=== PATIENT | female | born 1985 | race Caucasian/White ===

== ENCOUNTER 2018-12-26 19:17 | Emergency (ER) | payer OTHER ==
--- NOTE | 2018-12-26 20:39 | ER Document Report ---
ED Eye Complaint - General Mode of Arrival: Ambulatory Information source: Patient TRAVEL OUTSIDE OF THE [place] IN LAST 30 DAYS: No - HPI Onset: Other - 5 weeks Eye location: Right Injury: No Occurred at: Home Quality of pain: Sharp, Throbbing Severity: Severe Pain Level: 5 Associated symptoms: Pain, Redness, Eyelid swelling Other injuries: No injuries - General Chief Complaint: Eye Problem Stated Complaint: RIGHT EYE PAIN Time Seen by Provider: 12/26/18 20:17 Primary Care Provider: SANTO LUEVANO DO [Primary Care Provider] - Follow up as needed QUENTIN OMER DO [ACTIVE STAFF] - Follow up tomorrow (Call office at 8 AM and schedule an appointment for tomorrow I have spoken with the doctor you are to be seen tomorrow) Notes: 33-year-old female presented to ED for an infected Hordeolum to the right upper eyelid. The eye is very swollen. She states she has had this spot to the right upper eyelid for about 5 weeks. She states she started out with a stye and has been to her primary care doctor multiple times for this swelling to the eyelid. She states that they sent a ophthalmology consult but she cannot get into see the sample carrier until January which is 6 weeks from now. She now has an abscess to the upper eyelid. She states that the primary care doctor has not placed her on any antibiotics. She states the p pain has gotten severe due to the pressure. Patient is alert oriented respirations regular and unlabored speaking in full sentences walks with a even steady gait. (NITISH AGGARWAL) - Related Data Allergies/Adverse Reactions: Penicillins Allergy (Verified 12/26/18 19:18) Hives Past Medical History - General Information source: Patient - Social History Smoking Status: Current Every Day Smoker Cigarette use (# per day): Yes Smoking Education Provided: Yes - 4 minutes Frequency of alcohol use: None Drug Abuse: None Lives with: Family Family History: Reviewed & Not Pertinent Patient has suicidal ideation: No Patient has homicidal ideation: No - Past Medical History Cardiac Medical History: Reports: None Pulmonary Medical History: Reports: None EENT Medical History: Reports: None Neurological Medical History: Reports: Hx Migraine Endocrine Medical History: Reports: None Renal/ Medical History: Reports: None Malignancy Medical History: Reports: None GI Medical History: Reports: None Musculoskeletal Medical History: Reports None Skin Medical History: Reports None Psychiatric Medical History: Reports: Hx Anxiety, Hx Depression - anxiety Traumatic Medical History: Reports: None Infectious Medical History: Reports: None Past Surgical History: Reports: Hx Abdominal Surgery - exp lap, Hx Tonsillectomy Review of Systems - Review of Systems Constitutional: No symptoms reported EENT: Eye pain, Other - Started with a stye to the right upper eyelid now has an infected hordeolum Cardiovascular: No symptoms reported Respiratory: No symptoms reported Gastrointestinal: No symptoms reported Genitourinary: No symptoms reported Female Genitourinary: No symptoms reported Musculoskeletal: No symptoms reported Skin: No symptoms reported Hematologic/Lymphatic: No symptoms reported Neurological/Psychological: No symptoms reported -: Yes All other systems reviewed and negative Physical Exam - Vital signs Interpretation: Normal - General General appearance: Appears well, Alert - HEENT Head: Normocephalic, Atraumatic Eyes: Normal Pupils: PERRL Lids everted for exam: right: Stye - Infected hordeolum right upper eyelid Anterior chamber: Normal Ears: Normal External canal: Normal Tympanic membrane: Normal Sinus: Normal Nasal: Normal Mouth/Lips: Normal Mucous membranes: Normal Pharynx: Normal Neck: Normal - Respiratory Respiratory status: No respiratory distress Chest status: Nontender Breath sounds: Normal Chest palpation: Normal - Cardiovascular Rhythm: Regular Heart sounds: Normal auscultation Murmur: No - Abdominal Inspection: Normal Distension: No distension Bowel sounds: Normal Tenderness: Nontender Organomegaly: No organomegaly - Back Back: Normal, Nontender - Extremities General upper extremity: Normal inspection, Nontender, Normal color, Normal ROM, Normal temperature General lower extremity: Normal inspection, Nontender, Normal color, Normal ROM, Normal temperature, Normal weight bearing. No: Poly's sign - Neurological Neuro grossly intact: Yes Cognition: Normal Orientation: AAOx4 Adam Coma Scale Eye Opening: Spontaneous Adam Coma Scale Verbal: Oriented [place] Coma Scale Motor: Obeys Commands [place] Coma Scale Total: 15 Speech: Normal Motor strength normal: LUE, RUE, LLE, RLE Sensory: Normal - Psychological Associated symptoms: Normal affect, Normal mood - Skin Skin Temperature: Warm Skin Moisture: Dry Skin Color: Normal - Vital signs Vitals: Temp Pulse Resp BP Pulse Ox 98.5 F 82 13 123/72 96 12/26/18 19:34 12/26/18 19:34 12/26/18 19:34 12/26/18 19:34 12/26/18 19:34 Course - Re-evaluation Re-evalutation: 12/26/18 20:[address] Gaona due to the amount of swelling and pain to the right upper eyelid. She recommended consulting the sample carrier extension work instructor. Patient is a [facility] patient and has a ophthalmology consult at [facility] which she cannot see for [address] Gaona stated that this is too severe to wait 6 weeks she will need to be seen by sample carrier in the next [address] Pedro who is on-call for ophthalmology in the emergency room. With the plan to start her on Bactrim and Keflex, have her continue with the warm soaks as hard as she can stand without burning her eye at least 4 times a day and have her follow-up with him in his office tomorrow. Patient's stated she would call [facility] tomorrow to get approval for consult. (NITISH AGGARWAL) 12/26/18 21:48 Patient was seen and examined as requested by [facility]. Patient is a 33-year-old female that presents with an hordeolum to the right eye. States that she was evaluated at [facility] but cannot get into ophthalmology for 6 weeks. Patient will be started on Keflex, Bactrim. Advised to apply warm compresses. Contacted ophthalmology on-call who has agreed to see the patient tomorrow in his office. No evidence of periorbital or orbital cellulitis. PHYSICAL EXAMINATION: GENERAL: Well-appearing, well-nourished and in no acute distress. HEAD: Atraumatic, normocephalic. EYES: Pupils equal round extraocular movements intact, conjunctiva are normal. ENT: Erythematous, swollen upper eyelid on the right. Conjunctive are within normal limits. No periorbital erythema, pain with eye movement. Hordeolum present. NECK: Normal range of motion LUNGS: No respiratory distress Musculoskeletal: Normal range of motion NEUROLOGICAL: Normal speech, normal gait. PSYCH: Normal mood, normal affect. SKIN: Warm, Dry, normal turgor, no rashes or lesions noted. (ORI GAONA) - Vital Signs Vital signs: Temp Pulse Resp BP Pulse Ox 98.5 F 78 16 106/66 98 06/05/19 19:34 12/26/18 21:14 12/26/18 21:14 12/26/18 21:14 12/26/18 21:14 Discharge - Discharge Clinical Impression: hordeolum infected right upper eyelid Condition: Stable Disposition: HOME, SELF-CARE Additional Instructions: You have an infected hordeolum to the right upper eyelid. He started out with a stye that is now become infected and developed an abscess. Continue your warm compresses as you have been using. This is an infection now and needs antibiotics and treatment by an sample carrier. This cannot wait 6 weeks for you to follow-up with an sample carrier. Use warm moist compresses 5-6 times a day. Take antibiotics as prescribed. Use antibiotic ointment to the site. Acetaminophen Acetaminophen may be taken for pain relief or fever control. It's much safer than aspirin, offering a wider range of "safe" dosages. It is safe during . Some brand names are Tylenol, Panadol, Datril, Anacin 3, Tempra, and Liquiprin. Acetaminophen can be repeated every four hours. The following are maximum recommended dosages: WEIGHT Dose Drops Elixir Chewable(80mg) (LBS.) drprs=droppers tsp=teaspoon 6 40 mg .4 ml (1/2) 6-11 80 mg .8 ml (full) 1/2 tsp 1 tab 12-16 120 mg 1 1/2 drprs 3/4 tsp 1 1/2 tabs 17-23 160 mg 2 drprs 1 tsp 2 tabs 24-30 240 mg 3 drprs 1 1/2 tsp 3 tabs 30-35 320 mg 2 tsp 4 tabs 36-41 360 mg 2 1/4 tsp 4 1/2 tabs 42-47 400 mg 2 1/2 tsp 5 tabs 48-53 480 mg 3 tsp 6 tabs 54-59 520 mg 3 1/4 tsp 6 1/2 tabs 60-64 560 mg 3 1/2 tsp 7 tabs 65-70 600 mg 3 3/4 tsp 7 1/2 tabs 71-76 640 mg 4 tsp 8 tabs 77-82 720 mg 4 1/2 tsp 9 tabs 83-88 800 mg 5 tsp 10 tabs >89 pounds or adults 650 mg to 900 mg Acetaminophen can be repeated every four hours. Maximum daily dose not to exceed 4000 mg. These maximum recommended dosages are slightly higher than the dosages written on the product container, but these dosages are very safe and well below the toxic dosage for acetaminophen. Cephalexin The antibiotic you've been prescribed is a member of the cephalosporin class. This type of antibiotic covers a wide variety of infections, including those of the skin, lungs, and urinary tract. It's useful for staph infections. This antibiotic is slightly similar to the penicillin family. In rare cases, a person who is allergic to penicillin will also be allergic to this medication. If you have had a severe allergic reaction to penicillin, and have not taken this antibiotic since that time, notify your doctor. Antibiotics which cover many germs ("broad spectrum" antibiotics) are more likely to cause diarrhea or "yeast" infections. Women prone to vaginal yeast problems may suffer an attack after taking this antibiotic. In infants, oral thrush (white spots "stuck" on the cheek) or yeast diaper rash may result. See your doctor if these problems occur. Call at once if you develop itching, hives, shortness of breath, or lightheadedness. Sulfa Medications The antibiotic you have received is a member of the sulfa family. These antibiotics are commonly used for eye, ear, lung, or urinary infections. Sulfa antibiotics are best taken on an empty stomach. Extra glasses of water help the kidney process the antibiotic. Sulfas are not recommended for infants under two months, or for women near the end of . Occasional side effects can include nausea or diarrhea. Stop the medication and notify your doctor at once if you develop any skin rash, bruising, jaundice (yellow color of the skin), itching, swelling, joint pain, faintness, or shortness of breath, or if you note any other new or unusual symptoms. Oral Narcotic Medication You have been given a Soquel for pain control. This medication is a narcotic. It's best taken with food, as nausea can result if taken on an empty stomach. Don't operate machinery or drive within six hours of taking this medication. Do not combine this medicine with alcohol, or with any medication which can cause sedation (such as cold tablets or sleeping pills) unless you get permission from the physician. Narcotics tend to cause constipation. If possible, drink plenty of fluids and eat a diet high in fiber and fruits. Erythromycin You have been prescribed an antibiotic of the erythromycin class. These antibiotics are used for many infections, especially in penicillin-allergic patients. They're particularly useful for infections of the respiratory system. The medication will be most effective if taken before or at least two hours after meals. However, many persons will have nausea or stomach cramping with erythromycin. If this occurs, try taking the medicine with food. If the side effects are still intolerable, contact your doctor. You should not take erythromycin with non-sedating antihistamines such as Seldane or Hismanal. Call the doctor at once if you develop rash, itching, shortness of breath, or lightheadedness. Ibuprofen Ibuprofen is an excellent, safe drug for pain control. In addition, it has potent antiinflammatory effects which are beneficial, especially in the treatment of injuries, arthritis, or tendonitis. It's best to take ibuprofen with food. Persons with ulcer disease or allergy to aspirin should notify their physician of this before taking ibuprofen. Take the medication exactly as prescribed. Don't take additional doses unless instructed to do so by your doctor. If you develop wheezing, shortness of breath, hives, faintness, stomach pain, vomiting, or dark black stools, return for re-evaluation at once. FOLLOW-UP CARE: If you have been referred to a physician for follow-up care, call the physicians office for an appointment as you were instructed or within the next two days. If you experience worsening or a significant change in your symptoms, notify the physician immediately or return to the Emergency Department at any time for re-evaluation. Prescriptions: RX: Cephalexin Monohydrate [Keflex 500 mg Capsule] 500 mg PO Q6H 7 Days capsule Sulfamethoxazole/Trimethoprim [Bactrim Ds Tablet] 1 each PO BID #14 tablet Referrals: SANTO LUEVANO DO [Primary Care Provider] - Follow up as needed QUENTIN OMER DO [ACTIVE STAFF] - Follow up tomorrow (Call office at 8 AM and schedule an appointment for tomorrow I have spoken with the doctor you are to be seen tomorrow)
[2018-12-26] MEDS ORDERED: HYDROCODONE/ACETAMINOPHEN 5-325 MG TABLET PO ONE (20:58)
[2018-12-26] MEDS ORDERED: CEPHALEXIN 500 MG CAPSULE PO ONE (20:58)
[2018-12-26] MEDS ORDERED: SULFAMETHOXAZOLE/TRIMETHOPRIM 800-160 MG TABLET PO ONE (20:58)
[2018-12-26] MEDS ORDERED: ERYTHROMYCIN 0.5% OPH OINTMENT 3.5 GM (ER DISP) OD ONE (21:00)
[2018-12-26 21:15] VITALS: BP 106/66
== END 2018-12-26 21:21 | disposition home or self-care (01) ==
LOC: ER 19:17
DX: H00.031 Abscess of right upper eyelid (principal); H00.011 Hordeolum externum right upper eyelid; F17.210 Nicotine dependence, cigarettes, uncomplicated; Z71.6 Tobacco abuse counseling
CPT/HCPCS: 99283; 99406